=== PATIENT | male | born 1995 | race Caucasian/White ===

== ENCOUNTER → 2018-07-12 | Emergency (ER) | payer SELFPAY ==
[~2018-07-12] VITALS: Ht 170.2 cm; Wt 75.0 kg
[~2018-07-12] MED LIST: LORAZEPAM 2 MG INJ IV ONE; MAGNESIUM SULFATE 2 GM/50 ML 50 ML IVPB ONE; SOD CHLORIDE 0.9% 1,000 ML IV STA
[2018-07-12 20:41] VITALS: Ht 170.2 cm; Wt 75.0 kg
--- NOTE | 2018-07-12 21:13 | ERD ---
ER Documentation Chief Complaint Chief Complaint pt bib[place], [employer], pt screaming/shouting/standing infornt of traffic; a/0 x2 HPI 23-year-old man brought in by EMS for public intoxication, was at a [employer] and doing drugs and was found running around the street and running through traffic. Patient denies history of psychiatric illness and denies suicidal homicidal ideation and admits to drug abuse. Patient denies chest pain or shortness of breath, no vomiting or diarrhea. Patient transported here by EMS agitated and initially combative. ROS All systems reviewed and are negative except as per history of present illness. Allergies Allergies: Coded Allergies: No Known Allergy (Unverified , 07/12/18) PMhx/Soc Medical and Surgical Hx: pt denies Medical Hx, pt denies Surgical Hx Hx Alcohol Use: Yes Hx Substance Use: Yes Hx Tobacco Use: Yes Smoking Status: Current every day smoker FmHx Family History: No diabetes Physical Exam Vitals Vital Signs Date Temp Pulse Resp B/P (MAP) Pulse Ox O2 O2 Flow FiO2 Time Delivery Rate 07/12/18 98.8 100 18 122/74 98 23:44 (90) 07/12/18 98.8 138 18 127/72 98 20:41 (90) Physical Exam GENERAL: Well-developed, well-nourished, agitated, combative HEENT: Dry mucous membranes, pink conjunctiva, no cervical spine tenderness or step-off deformities, no goiter, no jaundice or icterus NEURO: Alert and oriented 3, able to answer questions and follow commands, pupils equal round reactive to light CARDIAC: Tachycardic and regular, no murmurs rubs or gallops LUNGS: Clear bilaterally no wheezing crackles or stridor ABDOMEN: Soft nontender, no guarding, no rigidity, no rebound, no psoas sign no obturator sign. SKIN: Warm and dry to touch, no abrasions, contusions, or hematomas, no lacerations, no ecchymosis, no target lesions, and without ulcers EXTREMITIES: No clubbing cyanosis or edema, calves are bilaterally symmetrical, no Homans sign, no popliteal cord sign. Distal pulses equal and bilateral PSYCH: Agitated, combative Result Diagram: 07/12/18210607/12/182106 Results 24 hrs Laboratory Tests Test 07/12/18 21:07 White Blood Count 22.3 10^3/ul Red Blood Count 5.00 10^6/ul Hemoglobin 15.3 g/dl Hematocrit 44.0 % Mean Corpuscular Volume 88.0 fl Mean Corpuscular Hemoglobin 30.6 pg Mean Corpuscular Hemoglobin Concent 34.8 g/dl Red Cell Distribution Width 12.4 % Platelet Count 257 10^3/UL Mean Platelet Volume 10.3 fl Immature Granulocytes % 0.900 % Neutrophils % 88.7 % Lymphocytes % 2.9 % Monocytes % 7.1 % Eosinophils % 0.0 % Basophils % 0.4 % Nucleated Red Blood Cells % 0.0 /100WBC Immature Granulocytes # 0.190 10^3/ul Neutrophils # 19.8 10^3/ul Lymphocytes # 0.7 10^3/ul Monocytes # 1.6 10^3/ul Eosinophils # 0.0 10^3/ul Basophils # 0.1 10^3/ul Nucleated Red Blood Cells # 0.0 10^3/ul Sodium Level 143 mmol/L Potassium Level 3.3 mmol/L Chloride Level 101 mmol/L Carbon Dioxide Level 21 mmol/L Anion Gap 21 Blood Urea Nitrogen 18 mg/dl Creatinine 1.31 mg/dl Est Glomerular Filtrat Rate mL/min > 60 mL/min Glucose Level 227 mg/dl Calcium Level 10.1 mg/dl Total Bilirubin 0.5 mg/dl Direct Bilirubin 0.00 mg/dl Indirect Bilirubin 0.5 mg/dl Aspartate Amino Transf (AST/SGOT) 36 IU/L Alanine Aminotransferase (ALT/SGPT) 18 IU/L Alkaline Phosphatase 55 IU/L Troponin I 0.081 ng/ml Total Protein 8.1 g/dl Albumin 5.3 g/dl Globulin 2.80 g/dl Albumin/Globulin Ratio 1.89 Lipase 59 U/L Current Medications Medications Dose Sig/Aggie Start Time Status Last (Trade) Ordered Route PRN Stop Time Admin Dose Reason Admin Sodium 1,000 ml @ Q30M STAT 07/12/18 DC 07/12/18 Chloride 2,000 mls/hr IV 20:47 21:09 07/12/18 21:16 Magnesium 50 ml @ 25 ONCE ONCE 07/12/18 DC 07/12/18 Sulfate mls/hr IVPB 21:30 21:26 07/12/18 23:29 Lorazepam 1 mg ONCE ONCE 07/12/18 DC 07/12/18 (Ativan) IV 21:30 22:01 07/12/18 21:31 Procedures/MDM IV line was established patient was placed on cafeteria monitor rhythm strip revealed a sinus tachycardia at 130 bpm with upright P and T waves. Patient was afebrile I administered 2 L normal saline IV for dehydration and lorazepam 1 mg IV for agitation Chest X-ray 1V Interpreted by me: Soft Tissue: No acute abnormalities Bones: No acute abnormalities Mediastinum/Cardiac Silhouette/Lungs: No acute abnormalities EKG performed, read by me revealed a sinus tachycardia at 120 bpm, normal axis, right ventricular conduction delay QRS duration 110 ms, prolonged QT at 601 ms I administered magnesium 2 g IV for prolonged QT syndrome. CBC reveals a leukocytosis consistent with the patient's presentation although I do not suspect this is due to infection. Electrolytes revealed mild hypokalemia, liver function tests normal, troponin negative Repeat EKG was performed after magnesium therapy, EKG was read by me and revealed a sinus tachycardia at 108 bpm, normal axis, right ventricular conduction delay with a QRS duration of 100 ms, no concerning ST elevations or depressions, QT interval normal at 450 ms. Patient remains without suicidal homicidal ideation, he is asymptomatic and his tachycardia improved, he appears well will be discharged Differential diagnoses considered, included but not limited to acute coronary syndrome, pulmonary embolism, aortic dissection, abdominal aortic aneurysm, sepsis, stroke, meningitis, encephalitis, pneumonia, appendicitis, cholecystitis, bowel obstruction, pyelonephritis, nephrolithiasis, cystitis, as well as metabolic, hematologic, and electrolyte abnormalities. As well as abscess, cellulitis, fractures, and dislocations. Patient feels much better at this time, and vital signs are normal, symptoms have improved. I did give strict instructions to return to the ED if symptoms continue or worsen, patient will otherwise follow-up with primary care physician. Patient understood instructions and agreed to plan. Disclaimer: Inadvertent spelling and grammatical errors are likely due to EHR/dictation software use and do not reflect on the overall quality of patient care. Also, please note that the electronic time recorded on this note does not necessarily reflect the actual time of the patient encounter. Departure Diagnosis: Primary Impression: Drug abuse Condition: GOSIA Kyle MD Jul 12, 2018 21:13
[2018-07-12 23:44] VITALS: BP 122/74; PULSE 100; RESP 18
== END | disposition home or self-care (01) ==
LOC: E/R 19:39 → EDBD 19:39
DX: F19.10 Other psychoactive substance abuse, uncomplicated (principal); F17.210 Nicotine dependence, cigarettes, uncomplicated; R40.2142 Coma scale, eyes open, spontaneous, at arrival to emergency department; R40.2242 Coma scale, best verbal response, confused conversation, at arrival to emergency department; R40.2362 Coma scale, best motor response, obeys commands, at arrival to emergency department; R10.9 Unspecified abdominal pain
CPT/HCPCS: 36415; 71045; 80053; 83690; 84484; 85025; 93005; 96374; 96375; 99285; J2060; J3475; J7030